=== PATIENT | male | born 1935 | race Caucasian/White ===

== ENCOUNTER 2016-12-10 12:05 | Outpatient (CLI) | payer MEDICARE, BC ==
[2016-12-10] VITALS (13 sets, daily range): BP systolic 101–171; BP diastolic 54–92; PULSE 49–51; TEMP 97.6
[~2016-12-10] VITALS: Ht 170.2 cm; Wt 64.5 kg
[~2016-12-10 12:05] MED LIST: AMOXICILLIN875 MG PO; BETAPACE 80MG80 MG PO; CALCIUM1 CAP PO; CEPHALEXIN500 M1 PO; COUMADIN 5MG5 MG/TAB PO; LOPRESSOR 225 MG/TAB PO; LOVENOX 6060 MG/0.6 SQ; MULTIPLE VITAMI1 CAP PO; SOTALOL80 MG PO; WARFARIN SOD5 MG PO; ZOCOR 10MG10 MG PO
[2016-12-10 13:19] LABS: HEMATOCRIT 42.2 % (42.0-52.0); HEMOGLOBIN 13.9 g/dl (13.5-18.0); MEAN CELL VOLUME 101 fl (80.0-100.0); MEAN CORPUSCULAR HEMOGLOBIN 33 pg (27.0-31.0); MEAN CORPUSCULAR HGB CONC 33 g/dl (33.0-37.0); MEAN PLATELET VOLUME 11.2 fl (7.4-10.4); PLATELET COUNT 136 K/mm3 (130-400); REDCELL DISTRIBUTION WIDTH-CV 12.8 % (11.5-14.5); WHITE BLOOD COUNT 6.3 K/mm3 (4.8-10.8)
[2016-12-10 13:30] LABS: PROTHROMBIN TIME 36.4 SECONDS (9.7-12.8)
[2016-12-10 13:37] LABS: INR 3.2 (0.8-3.0)
[2016-12-10 13:39] LABS: CALCIUM 9.2 mg/dL (8.4-10.2); CREATININE, serum 1.18 mg/dL (0.66-1.25); POTASSIUM 5.5 mmol/L (3.4-5.0)
== END 2016-12-10 16:00 | disposition home or self-care (01) ==
LOC: EUO 12:05 → COL.RAD 12:15 → EUO 16:00
PROVIDERS: Internal Medicine Interventional Cardiology
DX: I08.1 Rheumatic disorders of both mitral and tricuspid valves (principal); Z95.4 Presence of other heart-valve replacement
CPT/HCPCS: J2250; J3010

== ENCOUNTER 2017-04-15 09:33 | Outpatient (CLI) | payer MEDICARE, BC ==
[2017-04-15] VITALS (13 sets, daily range): BP systolic 108–163; BP diastolic 55–97; PULSE 46–61; TEMP 97.8
[~2017-04-15] VITALS: Ht 170.3 cm; Wt 63.1 kg
[2017-04-15 10:06] LABS: HEMATOCRIT 40.5 % (42.0-52.0); HEMOGLOBIN 13.2 g/dl (13.5-18.0); MEAN CELL VOLUME 100 fl (80.0-100.0); MEAN CORPUSCULAR HEMOGLOBIN 33 pg (27.0-31.0); MEAN CORPUSCULAR HGB CONC 33 g/dl (33.0-37.0); MEAN PLATELET VOLUME 11.9 fl (7.4-10.4); PLATELET COUNT 105 K/mm3 (130-400); RED BLOOD COUNT 4.04 M/mm3 (4.20-5.60); REDCELL DISTRIBUTION WIDTH-CV 13.1 % (11.5-14.5); WHITE BLOOD COUNT 5.1 K/mm3 (4.8-10.8)
[2017-04-15 10:09] LABS: INR 2.9 (0.8-3.0); PROTHROMBIN TIME 33.7 SECONDS (9.7-12.8)
[2017-04-15] MEDS ORDERED: ASPIRIN 81M81 MG/TA2 PO (10:22)
[2017-04-15 10:42] LABS: CALCIUM 8.7 mg/dL (8.4-10.2); CREATININE, serum 1.05 mg/dL (0.66-1.25); POTASSIUM 5.1 mmol/L (3.4-5.0)
== END 2017-04-15 12:17 | disposition home or self-care (01) ==
LOC: COL.RAD 09:33
PROVIDERS: Internal Medicine Interventional Cardiology
DX: Z95.0 Presence of cardiac pacemaker (principal); Z95.2 Presence of prosthetic heart valve
CPT/HCPCS: J2250; J3010